=== PATIENT | female | born 1995 | race Caucasian/White ===

== ENCOUNTER 2018-08-12 10:10 | Inpatient (IN) | payer BC, MEDICAID, SELFPAY ==
[2018-08-12] MEDS: Lactated Ringers 1,000 ML 50 ML IV ×3 (11:00→19:34)
[2018-08-12 11:08] VITALS: BMI 41.7
[2018-08-12 11:16] LABS: Hematocrit 36.4 % (37-47); Hemoglobin 11.9 g/dl (12.0-15.0); Mean Corp Hgb Conc 32.7 g/gl (32-36); Mean Corpuscular Hgb 26.6 pg (27.0-32.0); Mean Corpuscular Volume 81.3 fL (81-99); Mean Platelet Vol. 9.8 fl (6.2-12.0); Platelet Count 344 K/mm3 (150-450); RBC Distribution Width CV 13.8 % (11.6-14.6); RBC Distribution Width SD 39.7 fl (35.1-43.9); Red Blood Count 4.48 M/mm3 (4.2-5.4); Scan Indicated on CBC? Y/N NO; White Blood Count 10.7 K/mm3 (4.4-11.0)
[2018-08-12] MEDS: Oxytocin 30 units/NS 500 ml 30 UNITS/500 ML IV.SOLN IV (12:18)
[2018-08-12] MEDS: Nalbuphine 10 MG/ML Ampul IV (13:55)
--- NOTE | 2018-08-12 15:44 | PCM.HP.OB ---
History Date of Admission: 08/12/18 Final RAANZA: 08/22/18 Gestational age: 38 Weeks and 4 Days History of this : This is a 23 year-old, G [], P [], at 38 weeks gestational age. 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
--- NOTE | 2018-08-12 15:47 | HP.PCM_ITS ---
History Date of Admission: 08/12/18 Final ARANZA: 08/22/18 Gestational age: 38 Weeks and 4 Days History of this : This is a 23 year-old, G [], P [], at 38 weeks gestational age. 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
[2018-08-12] MEDS: fentaNYL-bupivacaine (epidural) 100 ML BAG EPIDURAL (16:41)
--- NOTE | 2018-08-12 21:11 | PCM.OB.VAG ---
Vaginal Delivery Maternal Presentation: Spontaneous Rupture of Membranes Amniotic Membrane Rupture Type: Spontaneous at home Amniotic Fluid Description: Clear Final ARANZA: 08/22/18 Gestational age: 38 Weeks and 4 Days Date of Procedure: 08/12/18 Pre-Operative Diagnosis: SROM Post-Operative Diagnosis: [facility]OM Type of Anesthesia: Epidural Description of Procedure: Patient prepped & draped when c/c/+3. She pushed to deliver head. head gently guided to allow delivery of anterior & posterior shoulders. No excess traction placed on head. Body delivered & placed on maternal abdomen. 3vc clamped & cut in delayed fashion. Placenta delivered with gentle traction. Good uterine tone obtained. Presentation: FELICIA Placental Delivery Description: Expressed Placenta Disposition: [facility] Cord Vessel Description: 3 Vessels Estimated Blood Loss: 350ml Infant A gender: Male (1 minute): 8 (5 minute): 9 Episiotomy Description: None Laceration: Vaginal Extension/lac - repaired with 3-0 vicryl Medications given after delivery: IV Pitocin Complications: None
[2018-08-12] MEDS: Oxytocin 30 units/NS 500 ml 30 UNITS/500 ML IV.SOLN 334 UNITS IV (22:05)
[2018-08-12] MEDS: Oxytocin 30 units/NS 500 ml 30 UNITS/500 ML IV.SOLN 167 UNITS IV (22:35)
[2018-08-13] VITALS: BP 118/56; PULSE 86; RESP 17; TEMP 37.2
[2018-08-13 04:00] VITALS: PULSE 78; RESP 17
--- NOTE | 2018-08-13 07:55 | PCM.PN.OB ---
Subjective: No complaints - Physical Exam General: Alert, Oriented x3 Abdomen: Soft, Non Tender, Non-Distended - ff mid & below umb Extremities: No Calf Tenderness Vital Signs Temp Pulse Resp BP 98.9 F 78 17 118/56 L 08/13/18 00:00 08/13/18 04:00 08/13/18 04:00 08/13/18 00:00 Oxygen Delivery Method Room Air Weight: 258 lb 9.636 oz Body Mass Index (BMI) 41.7 Intake and Output for Last 24 Hours 08/11/18 08/12/18 08/13/18 23:59 23:59 23:59 Intake Total 3184 / 3184 Output Total 600 / 600 Balance 2584 / 2584 Laboratory Tests Past 24 Hrs 08/12/18 08/12/18 11:00 11:00 WBC 10.7 RBC 4.48 Hgb 11.9 L Hct 36.4 L MCV 81.3 MCH 26.6 L MCHC 32.7 RDW 13.8 RDW Differential 39.7 Plt Count 344 MPV 9.8 Blood Type O POSITIVE Antibody Screen NEGATIVE Medical Necessity - Tobacco Use Smoking Status: Never smoker Assessment/Plan PPD#1 Routine care
[2018-08-13 09:49] VITALS: BP 115/66; PULSE 87; RESP 16; TEMP 36.4
[2018-08-13 12:07] VITALS: BP 104/60; PULSE 89; RESP 16; TEMP 36.3
[2018-08-13] MEDS: Senna/Docusate Sodium 1 Tablet PO (14:48)
[2018-08-13] MEDS: Ibuprofen 600 MG Tablet PO (14:48)
[2018-08-13 16:04] VITALS: BP 134/87; PULSE 80; RESP 16; TEMP 36.3
[2018-08-13 20:35] VITALS: BP 133/71; PULSE 90; RESP 16; TEMP 36.6; O2SAT 96
[2018-08-14 02:50] VITALS: BP 111/58; PULSE 79; RESP 16; TEMP 36.4; O2SAT 95
[2018-08-14] MEDS: Acetaminophen 500 MG Tablet 1000 MG PO (08:55)
[2018-08-14] MEDS: Senna/Docusate Sodium 1 Tablet PO (08:56)
[2018-08-14 09:20] VITALS: BP 125/85; PULSE 82; RESP 18; TEMP 36.1
--- NOTE | 2018-08-14 11:54 | PCM.PN.OB ---
Subjective: Doing well per patient and nursing staff. Ambulating and taking PO without difficulty. Voiding and passing flatus. Pain controlled. Denies headache, visual changes, chest pain, SOB, increased vaginal bleeding or clots, or leg pain. Discharge to home unless baby has increased bilirubin then will remain hotel status. - Physical Exam General: Alert, Oriented x3, Cooperative, No apparent distress HEENT: Atraumatic, Normocephalic Lungs: Clear to auscultation, Normal air movement, No rhonchi, No wheeze Cardiovascular: Regular Rhythm, No murmurs Abdomen: - - Fundus firm 2 below U. Extremities: No edema, - - Rhona's negative Psych/Mental Status: Normal Affect, Appropriate Vital Signs Temp Pulse Resp BP Pulse Ox 97 F L 82 18 125/85 H 95 08/14/18 09:20 08/14/18 09:20 08/14/18 09:20 08/14/18 09:20 08/14/18 02:50 Oxygen Delivery Method Room Air Weight: 258 lb 9.636 oz Body Mass Index (BMI) 41.7 Intake and Output for Last 24 Hours 08/12/18 08/13/18 08/14/18 23:59 23:59 23:59 Intake Total 3184 / 3184 Output Total 600 / 600 200 / 200 Balance 2584 / 2584 -200 / -200 Medical Necessity - Tobacco Use Smoking Status: Never smoker Assessment/Plan A:PPD #2 P: 1) Routine PP care and instructions reviewed 2) Discharge home or to hotel status if baby has to stay for further management. 3) Follow up in 2 weeks and 6 weeks
--- NOTE | 2018-08-14 12:02 | PCM.DCVAG ---
Discharge Diet: No Restrictions Discharge Activity: Return to Normal Activity, May not drive while taking narcotic pain medications., May Shower May resume sexual activity in: 4-6 weeks Weight Bearing Status: Weight bearing as tolerated Call your doctor if your incision/area has: Continuous Slow Oozing, Sudden Increased Bleeding, Increased Pain/ Swelling, Increased Redness, Foul Smelling Discharge Call your doctor if you observe: Fever of 101 or Higher, Coldness, Increased Pain, Numbness or Tingling, Change in Color, Inability to urinate, Inability to have a bowel movement, Using more than one pad per hour, Shortness of breath, Fainting spells, Chest pain, Increased palpitations (irregular heartbeat), Calf discomfort, Uncontrolled pain Instructions: After a Vaginal , at Home, Common Questions About , Nutrition While Additional Instructions: If you experience any of the following, contact your healthcare provider. Bleeding that soaks a pad every hour for 2 hours Fever 100.4 or higher Unrelieved incision or abdominal pain Swelling, redness, discharge or bleeding from your incision or episiotomy site Your incision begins to separate Problems urinating (including inability to urinate or burning while urinating). Visual changes Severe headache Flu-like symptoms Pain or redness in one of both of your breasts Pain, warmth, tenderness or swelling in your legs, especially the calf area Frequent nausea and vomiting Symptoms of depression or anxiety If you experience any of the following, call 911 or go to the nearest Emergency Room. Chest pain Problems breathing Seizure activity Partial or complete paralysis of a body part, slurred speech, weakness or drooping of the face, or a sudden inability to walk or hold your balance Allergies/Adverse Reactions: Allergies No Known Allergies Allergy (Verified 08/12/18 11:04) Medications to take at Discharge Vits96/Iron Fum/Folic [ Tablet] 1 each PO DAILY 08/12/18 Acetaminophen [Tylenol] 1,000 mg PO Q8H PRN PRN tablet 08/14/18 Please Follow Up With: Gisela Sarabia When: Call to make an appointment with your doctor in 2 weeks and 6 weeks. If you had elevated Blood Pressure or 4th degree laceration you will need to be seen in 2 weeks. Primary Care Physician: Care Physician,No Primary [Primary Care Provider] - Test Results: Test results from this visit will be discussed in further detail at your follow-up appointment, if applicable.
--- NOTE | 2018-08-14 12:05 | DCINST_ITS ---
Discharge Diet: No Restrictions Discharge Activity: Return to Normal Activity, May not drive while taking narcotic pain medications., May Shower May resume sexual activity in: 4-6 weeks Weight Bearing Status: Weight bearing as tolerated Call your doctor if your incision/area has: Continuous Slow Oozing, Sudden Increased Bleeding, Increased Pain/ Swelling, Increased Redness, Foul Smelling Discharge Call your doctor if you observe: Fever of 101 or Higher, Coldness, Increased Pain, Numbness or Tingling, Change in Color, Inability to urinate, Inability to have a bowel movement, Using more than one pad per hour, Shortness of breath, F ainting spells, Chest pain, Increased palpitations (irregular heartbeat), Calf discomfort, Uncontrolled pain Instructions: After a Vaginal , at Home, Common Questions About , Nutrition While Additional Instructions: If you experience any of the following, contact your healthcare provider. * Bleeding that soaks a pad every hour for 2 hours * Fever 100.4 or higher * Unrelieved incision or abdominal pain * Swelling, redness, discharge or bleeding from your incision or episiotomy site * Your incision begins to separate * Problems urinating (including inability to urinate or burning while urinating). * Visual changes * Severe headache * Flu-like symptoms * Pain or redness in one of both of your breasts * Pain, warmth, tenderness or swelling in your legs, especially the calf area * Frequent nausea and vomiting * Symptoms of depression or anxiety If you experience any of the following, call 911 or go to the nearest Emergency Room. * Chest pain * Problems breathing * Seizure activity * Partial or complete paralysis of a body part, slurred speech, weakness or drooping of the face, or a sudden inability to walk or hold your balance Allergies/Adverse Reactions: Allergies No Known Allergies Allergy (Verified 08/12/18 11:04) Medications to take at Discharge Vits96/Iron Fum/Folic [ Tablet] 1 each PO DAILY 08/12/18 Acetaminophen [Tylenol] 1,000 mg PO Q8H PRN PRN tablet 08/14/18 Please Follow Up With: Gisela Sarabia When: Call to make an appointment with your doctor in 2 weeks and 6 weeks. If you had elevated Blood Pressure or 4th degree laceration you will need to be seen in 2 weeks. Primary Care Physician: Care Physician,No Primary [Primary Care Provider] - Test Results: Test results from this visit will be discussed in further detail at your follow- up appointment, if applicable.
[2018-08-14] MEDS: Ibuprofen 600 MG Tablet PO (13:37)
[2018-08-14 14:45] VITALS: BP 115/84; PULSE 94; RESP 20; TEMP 36.3; O2SAT 97
[2018-08-14 19:30] VITALS: BP 107/65; PULSE 84; RESP 17; TEMP 36.1
--- OUTSIDE RECORDS SUMMARY | 2018-10-07 13:10 | XMS RPT_ITS ---
:1995 Author Organization OHIP Care Team Providers Name Role Phone GEOVANNI CHAVEZ (CNM) Attending Unavailable GEOVANNI CHAVEZ (CNM) Referring Unavailable MARIE, KARMON Attending Unavailable GEOVANNI CHAVEZ (CNM) Referring Unavailable ZULAY PACHECO Attending Unavailable GEOVANNI CHAVEZ (CNM) Referring Unavailable MARIE, KARMON Referring Unavailable JESSICA GARNER (CNM) Attending Unavailable MARIE, KARMON Referring Unavailable MARIE, KARMON Referring Unavailable MARIE, KARMON Attending Unavailable MARIE, KARMON Referring Unavailable MAGALIS PACHECOZIZ A Attending Unavailable MARIE, KARMON Referring Unavailable GEOVANNI CHAVEZ (CNM) Attending Unavailable PASCUAL JESSICA (CNM) Attending Unavailable PASCUAL, JESSICA (CNM) Referring Unavailable PASCUAL JESSICA (CNM) Attending Unavailable JOSE RABAGO (LATCHER) Referring Unavailable PASCUAL, JESSICA (CNM) Attending Unavailable PASCUAL, JESSICA (CNM) Attending Unavailable PASCUAL, JESSICA (CNM) Attending Unavailable PASCUAL, JESSICA (CNM) Attending Unavailable PASCUAL, JESSICA (CNM) Attending Unavailable RADHA BARAJAS (LATCHER) Attending Unavailable GIOVANNI SALTER MD Attending Unavailable PHYSICIAN, NONE Primary Care Unavailable Marie, Karmon Admitting Unavailable Marie, Karmon Attending Unavailable Augie Salazar Referring Unavailable Primay Care Physicia, No Primary Care Unavailable PROBLEMS PROBLEMS DATE TYPE CONDITION / CODE ATTENDING STATUS SOURCE 06/24/2018 Active Unknown / JESSICA GARNER Active [facility] UNK(Unknown) (CNM) [place] Repository 05/27/2018 Active Abnormal glucose NA Active [facility] complicating [facility] [place] / Repository O99.810(ICD-10) 05/26/2018 Active 27 weeks gestation NA Active [facility] of / [place] Z3A.27(ICD-10) Repository 02/09/2018 Active Encounter for NA Active [facility] [place] screening, Repository unspecified / Z36.9(ICD-10) 01/12/2018 Active Obesity NA Active [facility] complicating [facility] , Repository unspecified trimester / O99.210(ICD-10) PROCEDURES PROCEDURES No Procedure Records FoundRESULTS RESULTS PROGRESS Observed: 08/18/2018 Status: COMPLETED Source: GRAY 10:44 AM [facility] REPOSIT[facility] HNO ID: [id number] Author: Radha Dan) [place] Service: (none) Author Type: Nurse Practitioner Type: Progress Notes Filed: 08/18/2018 11:14 AM Note Text: SUBJECTIVE: 23 year old female presents for 1 week exam. Outcome: . Date delivered: 08/12/18. Delivering M.D.: Augie Salazar MD. Delivered in what hospital? [facility] Lochia: Rubra, Normal depression/mood: moderate Breast/bottle: Breast feeding. If , do you have any drainage or redness at incision site? N/A Do you have a fever? No Additional Issues: none Sera Winters SUBSTANCE ABUSE SERVICES DIRECTOR *pt states that she is crying all the time and anxious and she doesn't understand why this is happening. Infant is jaundice and having to repeat blood work every other day and she is worried about that. She states that she has had some depression in the past but was never treated. OBJECTIVE: Abdomen: soft, non-tender, no masses, no hepatosplenomegaly, no lymphadenopathy and deferred Incision: None PLAN: RTO for 6 week check, -Zoloft 25mg x6 days and then 50mg daily ordered -pt verbalized understanding of the directions for the medication and importance of calling the office if she is still struggling on the medication. 6 week check in 09/23- medication follow up at that visit will need done. I have reviewed and updated past medical and surgical history, medications and allergies. Radha Barajas APRN.LATCHER PROGRESS Observed: 08/17/2018 Status: COMPLETED Source: GRAY 2:26 PM [facility] REPOSITORY HNO ID: [id number] Author: Sera Winters LPN Service: (none) Author Type: (none) Type: Progress Notes Filed: 08/17/2018 2:40 PM Note Text: Pt delivered via at [facility] on 08/12/[address] Salazar. See OB Outcome note. Called pt to followup after delivery and pt very weepy and stated that she has started with post depression. appt given for 08/18/18 to see provider to discuss this and possible tx. Sera Winters LPN HOSP Observed: 08/17/2018 Status: COMPLETED Source: GRAY 12:00 AM [facility] REPOSITORY Patient Update (WOOB) KEEGAN CAO ([id number]) 1995 F Date Time Provider Department 08/17/18 AUGIE SALAZAR During your visit today, we recorded the following information about you: Sera Winters LPN 08/17/2018 2:40 PM Signed Pt delivered via at [facility] on 08/12/[address] Salazar. See OB Outcome note. Called pt to followup after delivery and pt very weepy and stated that she has started with post depression. appt given for 08/18/18 to see provider to discuss this and possible tx. Sera Winters LPN Allergies As of Date: 08/17/2018 (No Known Allergies) Date Reviewed: 08/04/2018 Reviewed by: Claudia Buchanan Ma - Fully Assessed Prescriptions as of 08/17/2018 Sig: VITAMIN,CALCIUM,MINE* Take 1 tablet by mouth. Problem List As Of Date 08/17/2018 Noted Resolved Obesity in [O99.210] INVALID FOR* More... Patient request for diagnostic testing [Z01.89] INVALID FOR* More... Abnormal glucose affecting [O99.810] INVALID FOR* More... Positive GBS test [B95.1] INVALID FOR* Encounter Status:Closed by SERA WINTERS LPN on 08/17/18 DISCHARGE INSTRUCTION Observed: 08/14/2018 Status: F Source: GRUNDY 12:05 PM [facility] REPOSITORY [facility] Medical Records Department [address] [place] [address] Instructions for Home/Discharge Instructions 08/14/18 1202 MR#: [id number] Acct: [id number] Name: KEEGAN CAO Rep #: [id number] : 1995 23 From: Geovanni Chavez CNM PCP: Care Physician, No Primary Status: ADM IN Discharge Diet: No Restrictions Discharge Activity: Return to Normal Activity, May not drive while taking narcotic pain medications., May Shower May resume sexual activity in: 4-6 weeks Weight Bearing Status: Weight bearing as tolerated Call your doctor if your incision/area has: Continuous Slow Oozing, Sudden Increased Bleeding, Increased Pain/ Swelling, Increased Redness, Foul Smelling Discharge Call your doctor if you observe: Fever of 101 or Higher, Coldness, Increased Pain, Numbness or Tingling, Change in Color, Inability to urinate, Inability to have a bowel movement, Using more than one pad per hour, Shortness of breath, Fainting spells, Chest pain, Increased palpitations (irregular heartbeat), Calf discomfort, Uncontrolled pain Instructions: After a Vaginal , at Home, Common Questions About , Nutrition While Additional Instructions: If you experience any of the following, contact your healthcare provider. * Bleeding that soaks a pad every hour for 2 hours * Fever 100.4 or higher * Unrelieved incision or abdominal pain * Swelling, redness, discharge or bleeding from your incision or episiotomy site * Your incision begins to separate * Problems urinating (including inability to urinate or burning while urinating). * Visual changes * Severe headache * Flu-like symptoms * Pain or redness in one of both of your breasts * Pain, warmth, tenderness or swelling in your legs, especially the calf area * Frequent nausea and vomiting * Symptoms of depression or anxiety If you experience any of the following, call 911 or go to the nearest Emergency Room. * Chest pain * Problems breathing * Seizure activity * Partial or complete paralysis of a body part, slurred speech, weakness or drooping of the face, or a sudden inability to walk or hold your balance Allergies/Adverse Reactions: Allergies No Known Allergies Allergy (Verified 08/12/18 11:04) Medications to take at Discharge Vits96/Iron Fum/Folic [ Tablet] 1 each PO DAILY 08/12/18 Acetaminophen [Tylenol] 1,000 mg PO Q8H PRN PRN tablet 08/14/18 Please Follow Up With: Augie Salazar When: Call to make an appointment with your doctor in 2 weeks and 6 weeks. If you had elevated Blood Pressure or 4th degree laceration you will need to be seen in 2 weeks. Primary Care Physician: Care Physician,No Primary [Primary Care Provider] - Test Results: Test results from this visit will be discussed in further detail at your follow-up appointment, if applicable. 08/14/18 1205 <Electronically signed by Geovanni Chavez CNM> Date Geovanni Chavez CNM CC: No Primary Care Physician OPERATIVE REPORT Observed: 08/12/2018 Status: F Source: GRUNDY 10:26 PM [facility] REPOSITORY [facility] Medical Records Department [address] [place] [address] Operative Report 08/12/18 2111 MR#: [id number] Acct: [id number] Name: KEEGAN CAO Princess Rep #: [id number] : 1995 23 From: Augie Salazar PCP: Care Physician, No Primary Status: ADM IN Location: [id number] Vaginal Delivery Maternal Presentation: Spontaneous Rupture of Membranes Amniotic Membrane Rupture Type: Spontaneous at home Amniotic Fluid Description: Clear Final ARANZA: 08/22/18 Gestational age: 38 Weeks and 4 Days Date of Procedure: 11/29/18 Pre-Operative Diagnosis: SROM Post-Operative Diagnosis: SROM Type of Anesthesia: Epidural Description of Procedure: Patient prepped AND draped when c/c/+3. She pushed to deliver head. head gently guided to allow delivery of anterior AND posterior shoulders. No excess traction placed on head. Body delivered AND placed on maternal abdomen. 3vc clamped AND cut in delayed fashion. Placenta delivered with gentle traction. Good uterine tone obtained. Presentation: FELICIA Placental Delivery Description: Expressed Placenta Disposition: [facility] Cord Vessel Description: 3 Vessels Estimated Blood Loss: 350ml Infant A gender: Male (1 minute): 8 (5 minute): 9 Episiotomy Description: None Laceration: Vaginal Extension/lac - repaired with 3-0 vicryl Medications given after delivery: IV Pitocin Complications: None 08/12/182225 <Electronically signed by Augie Salazar > Date Augie Salazar CC: No Primary Care Physician; Augie Salazar Signed HISTORY AND PHYSICAL Observed: 08/12/2018 Status: F Source: GRUNDY EXAM 3:47 PM [facility] REPOSITORY [facility] Medical Records Department [address] [place] [address] History and Physical 08/12/18 1544 MR#: [id number] Acct: [id number] Name: KEEGAN CAO Rep #: [id number] : 1995 23 From: Augie Salazar PCP: Care Physician, No Primary Status: ADM IN Location: [id number] History Date of Admission: 08/12/18 Final ARANZA: 08/22/18 Gestational age: 38 Weeks and 4 Days History of this : This is a 23 year-old, G [], P [], at 38 weeks gestational age. Allergies No Known Allergies Allergy (Verified 08/12/18 11:04) Home Medications: Home Medications Vits96/Iron Fum/Folic [ Tablet] 1 each PO DAILY 08/12/18 Smoking Status: Never smoker Heart Tracin with mod variability, accels, mild variables TOCO Analysis: Q 2min History Past Pregnancies: Past Pregnancies Delivery Name GA/Weeks Outcome Route WeiInfant GeLabor LenAnesthesiDelivery Provider FOB Date ght [facility] Location Labs: see [facility] H AND P Physical Exam General: Alert, Oriented x3 Abdomen: Soft, Non Tender, Non-Distended, Gravid TRAINING AND DOCUMENTATION SPECIALIST: Normal external genitalia Estimated gestational size: Appropriate for gestational size Presentation: Cephalic Cervix Dilation (cm): 5 Station: -2 Effacement (%): 80 Assessment/Plan This is a 23 year-old yo female in labor Admit to L AND D SROM - pitocin for augmentation GBS positive - pcn per protocol EFW less than 4500g - patient with adequate pelvis Pain - epidural 08/12/18 1547 <Electronically signed by Augie Salazar > Date Augie Salazar Cosigner Signature: Date (if applicable) CC: No Primary Care Physician; Augie Salazar Signed CBC-COMPLETE BLOOD CNT Collected: 08/12/2018 Status: F Source: STEFFANIE NO DIFF 11:00 AM [facility] REPOSITORY TYPE CODE TESTS RESULT OUT OF RANGE REFERENCE UNITS LAB L100.1000 4.4-11.0 K/mm3 Normal WBC 10.7 LAB L100.1200 4.2-5.4 M/mm3 Normal RBC 4.48 LAB L100.1300 12.0-15.0 g/dl Low HGB 11.9 LAB L100.1400 37-47 % Low HCT 36.4 LAB L100.1500 81-99 fL Normal MCV 81.3 LAB L100.1600 27.0-32.0 pg Low MCH 26.6 LAB L100.1700 32-36 g/gl Normal MCHC 32.7 LAB L100.1810 11.6-14.6 % Normal RDW CV 13.8 LAB L100.1820 35.1-43.9 fl Normal RDW SD 39.7 LAB L100.1900 150-450 K/mm3 Normal PLT 344 LAB L100.2000 6.2-12.0 fl Normal MPV 9.8 Performed By: #### L100.0500 #### [facility] [address] [place], [address] TYPE AND SCREEN Collected: 08/12/2018 Status: F Source: GRUNDY 11:00 AM [facility] REPOSITORY Order Comment: Reason for Type AND Screen/Red Cells: ROUTINE TYPE CODE TESTS RESULT OUT OF RANGE REFERENCE UNITS LAB B10.0800 O Normal BLOOD TYPE GEL POSITIVE LAB B100.4000 Normal Antibody NEGATIVE Screen Performed By: #### B101.7450 #### [facility] [address] [place], [address] PROGRESS Observed: 08/04/2018 Status: COMPLETED Source: GRAY 11:00 AM [facility] REPOSITORY HNO ID: [id number] Author: Jessica Garner Service: (none) Author Type: Intensivist Type: Progress Notes Filed: 08/04/2018 11:01 AM Note Text: CM - S: Keegan Cao presents for a routine OB visit at 37w3d. She denies LOF, VB, DFM or regular cramping/contractions. Feels like baby is pushing down. Patient reports increase in irregular BHx ctx and desires SVE today. O: See flow sheet Gen: A+O x 3, NAD Abdomen: NT x 4 quadrants, S=D Extremities: No edema in LE SVE = 2/60/-2, scant bleeding with exam. No membrane sweep done today. A/P: 37w3d IUP. Normal . RTO 1 Weeks for follow up. Call with LOF, VB, DFM or cramping/contractions. 1. 37 weeks gestation of -[facility] teaching done, Labor precautions reviewed - URINE OB DIP B/O 2. Encounter for supervision of normal first in third trimester - URINE OB DIP B/O Jessica Garner APRN.CNM PROGRESS Observed: 07/30/2018 Status: COMPLETED Source: GRAY 5:41 PM [facility] REPOSITORY HNO ID: [id number] Author: Jessica Garner Service: (none) Author Type: Intensivist Type: Progress Notes Filed: 07/30/2018 5:42 PM Note Text: CM - S: Keegan Cao presents for a routine OB visit at 36w5d. She denies LOF, VB, DFM or cramping/contractions. O: See flow sheet Gen: A+O x 3, NAD Abdomen: NT x 4 quadrants, S=D Extremities: No extremities A/P: 36w5d IUP. Normal , GBS Screening. RTO 1 Weeks for follow up. Call with LOF, VB, DFM or cramping/contractions. 1. 36 weeks gestation of -GBS screening today -[facility] teaching and PTL precautions reviewed - URINE OB DIP B/O - STREPTOCOCCUS B PCR 2. Encounter for supervision of normal first in 3rd trimester Jessica Garner, BIOSTATISTICS PROFESSOR.CNM GROUP B STREP PCR Collected: 07/30/2018 Status: F Source: GRAY 9:30 AM [facility] REPOSITORY TYPE CODE TESTS RESULT OUT OF RANGE REFERENCE UNITS LAB GBPCRT Positive for Abnormal Group B Alert GROUP B Streptococcus by STREP PCR PCR. If susceptibility testing is needed and was not requested with initial test order, call lab ([phone]) within 5 days to initiate workup. Performed By: #### GBPCR #### [facility] [address] [place], [place] [address] PROGRESS Observed: 07/27/2018 Status: COMPLETED Source: GRAY 9:09 AM [facility] REPOSITORY HNO ID: [id number] Author: Kallie Pugh RN Service: (none) Author Type: (none) Type: Progress Notes Filed: 07/27/2018 9:09 AM Note Text: CLASS Date Attended: July 26, 2018 Introduction Credentials Expectations of a 3-hour class 1. Review of handouts 2. Hospital tour 3. Baby care class Stages of labor video Stages to call the doctor 1. SROM 2. Cervical changes 3. Bleeding vs. bloody show 4. Decreased movement Hospital Procedures 1. Internal/external monitors 2. IV therapy 3. AROM 4. Pitocin Pain Management 1. Epidural 2. Other pain medications 3. No medicinal comfort measures 4. Breathing/pushing Delivery methods 1. 2. Forceps 3. Vacuum extractor Physician presentations 1. OB-manager cardiac 2. Senior Billing Consultant 1. Mom's first hour 2. baby's first hour 3. baby's discharge protocol Completed childbirth education class. Kallie Pugh RN CNCNPATED Observed: 07/26/2018 Status: COMPLETED Source: GRAY 12:00 AM [facility] REPOSITORY Education (WOOB) KEEGAN CAO ([id number]) 1995 F Date Time Provider Department 07/26/18 NURSE PNOB [facility] WOOB Reason for Visit: Class [4072] Progress Notes: Kallie Pugh RN 07/27/2018 9:09 AM Signed CLASS Date Attended: July 26, 2018 Introduction Credentials Expectations of a 3-hour class 1. Review of handouts 2. Hospital tour 3. Baby care class Stages of labor video Stages to call the doctor 1. SROM 2. Cervical changes 3. Bleeding vs. bloody show 4. Decreased movement Hospital Procedures 1. Internal/external monitors 2. IV therapy 3. AROM 4. Pitocin Pain Management 1. Epidural 2. Other pain medications 3. No medicinal comfort measures 4. Breathing/pushing Delivery methods 1. 2. Forceps 3. Vacuum extractor Physician presentations 1. OB-manager cardiac 2. Senior Billing Consultant 1. Mom's first hour 2. baby's first hour 3. baby's discharge protocol Completed childbirth education class. Kallie Pugh RN During your visit today, we recorded the following information about you: Allergies As of Date: 07/26/2018 (No Known Allergies) Date Reviewed: 07/22/2018 Reviewed by: Jessica Garner - Fully Assessed Prescriptions as of 07/26/2018 Sig: VITAMIN,CALCIUM,MINE* Take 1 tablet by mouth. Encounter Status:Closed by KALLIE PUGH RN on 07/27/18 PROGRESS Observed: 07/22/2018 Status: COMPLETED Source: GRAY 11:43 AM [facility] REPOSITORY HNO ID: [id number] Author: Jessica Garner Service: (none) Author Type: Intensivist Type: Progress Notes Filed: 07/22/2018 11:44 AM Note Text: CM - S: Keegan Cao presents for a routine OB visit at 35w4d. She denies LOF, VB, DFM or cramping/contractions. O: See flow sheet Gen: A+O x 3, NAD Abdomen: NT x 4 quadrants, S=D, EFW = 6.5-7# today by Estuardo'jessi Extremities: No edema in LE A/P: 35w4d IUP. Normal . RTO Weeks for follow up. Call with LOF, VB, DFM or cramping/contractions. 1. Encounter for supervision of normal first in third trimester -Labor precautions reviewed - URINE OB DIP B/O 2. 35 weeks gestation of -[facility] teaching discussed -GBS vaginal screening at n.v. - URINE OB DIP B/O Jessica Garner APRN.CNM PROGRESS Observed: 07/08/2018 Status: COMPLETED Source: GRAY 10:33 AM [facility] REPOSITORY HNO ID: [id number] Author: Jessica Garner Service: (none) Author Type: Intensivist Type: Progress Notes Filed: 07/08/2018 11:26 AM Note Text: KZ/CM-S: Patient presents for OB visit at 33w4d. Denies VB, LOF, regular contractions. Denies nausea or heartburn. Experiencing dull ache on right side. Comes and goes. Discussed changes to uterus and growth could be contributing to the ache. O: See flow sheet General: Alert and orient x3. Pleasant in no apparent distress. Abdomen: NT x 4 quadrants, S=D Extremities: No edema in bilateral lower extremities. A/P: 23 y/o @ 33.4wks. Normal . RTO 2 weeks for follow- up visit. Call with LOF, VB, DFM or cramping/contractions. 1. 33 weeks gestation -[facility] teaching and PTL precautions reviewed 2. Need for vaccination -Tdap and flu vaccine given today Jessica VARGHESEN/Jessica Garner APRN-CNM PROGRESS Observed: 07/08/2018 Status: COMPLETED Source: GRAY 9:46 AM [facility] REPOSITORY O ID: [id number] Author: Meredith Pepper Ma Service: (none) Author Type: (none) Type: Progress Notes Filed: 07/08/2018 11:26 AM Note Text: Patient identified by name and date of . Keegan Cao presents today for a vaccination of Tdap. Patient denies an allergy to latex: yes Patient denies a severe (life-threatening) allergy to a previous dose of Tdap, DTP, DTaP, DT or Td vaccine. Yes Patient denies history of epilepsy or neurological problems: Yes Patient is afebrile and denies being moderately or severely ill: Yes Patient denies history of Guillain-Grottoes Syndrome (a severe paralytic illness): Yes Tdap Adacel injection was given without incident. See immunizations for details of immunizations administered today. VIS sheet provided: Yes Provider Pascual was present in office at time of injection. Meredith Pepper Ma 23 year old female here for INACTIVATED INFLUENZA VACCINE. 0465-2926 Season Patient is identified by name and date of : Yes [] CONTRAINDICATIONS color enhanced section Age less than 6 months? No Allergy to eggs, chicken, chicken feathers, or chicken dander? No Allergy to thimerosal (a preservative) or formaldehyde, gelatin? No History of severe reaction to any vaccine component or a previous dose of influenza vaccination? No History of Guillain-Grottoes Syndrome within 6 weeks after a previous influenza vaccine? No Patient is not moderately or severely ill? No Current temperature greater or equal to 100.4F? No History of Bone Marrow Transplant prior 6 months or solid organ transplant in the past 3 months ? No History of fainting after a prior injection or medical procedure? No- ? If patient has fainted in the past, the CDC recommends sitting or lying down for 15 minutes after the vaccination. [] VERIFICATION color enhanced section Was the answer Yes for any of the above contraindications? No contraindications present. Acceptable to proceed with vaccine. Patient/guardian agrees the above answers are true to the best of their knowledge? Yes Flu vaccine information sheet given? Yes See immunization activity in [facility] for details of immunizations adminstered today. Patient age: [age] year old For The 5173-1211 Flu Season 6-35 months old: Fluzone 0.25 ml - IM (Preservative Free) 3 years of age: Fluzone 0.5 ml - IM (Preservative Free) 3 years and older: Fluzone 0.5 ml- IM-(with Preservatives) 65+ years old: 2-49 years old Fluzone High-Dose 0.5 ml - IM (Preservative Free) FLUMIST- intranasal REMEMBER: If patient is less than 9 years of age and this is the first vaccine of Influenza to be received in any flu season, they should receive a second dose in one months time. 100G, 3HR GEST. Collected: 06/09/2018 Status: F [facility] 10:59 AM [facility] REPOSITORY TYPE CODE TESTS RESULT OUT OF REFERENCE UNITS RANGE LAB GTG0 74-94 mg/dL Glucose 86 GST,Fasting Result Comment: [place] [employer] ([place] guidelines state gestational diabetes mellitus is present when 2 or more of the plasma glucose concentrations meet or exceed the following levels: fastin mg/dl, 1 hr: 180 mg/dl, 2 hr: 155 mg/dl, and 3 hr: 140 mg/dl. LAB GTG1 74-179 mg/dL High Glucose GST, 1 215 Hr Result Comment: [place] [employer] ([place]) guidelines state gestational diabetes mellitus is present when 2 or more of the plasma glucose concentrations meet or exceed the following levels: fastin mg/dl, 1 hr: 180 mg/dl, 2 hr: 155 mg/dl, and 3 hr: 140 mg/dl. LAB GTG2 74-154 mg/dL Glucose GST, 2 124 Hr Result Comment: [place] [employer] ([place]) guidelines state gestational diabetes mellitus is present when 2 or more of the plasma glucose concentrations meet or exceed the following levels: fastin mg/dl, 1 hr: 180 mg/dl, 2 hr: 155 mg/dl, and 3 hr: 140 mg/dl. LAB GTG3 74-139 mg/dL Low Glucose GST, 3 Hr 51 Result Comment: [place] [employer] ([place]) guidelines state gestational diabetes mellitus is present when 2 or more of the plasma glucose concentrations meet or exceed the following levels: fastin mg/dl, 1 hr: 180 mg/dl, 2 hr: 155 mg/dl, and 3 hr: 140 mg/dl. Performed By: #### GTGST3 #### [facility] [address] [place], [place] [address] PROGRESS Observed: 06/09/2018 Status: COMPLETED Source: GRAY 10:46 AM [facility] REPOSITORY HNO ID: [id number] Author: Jessica Garner Service: (none) Author Type: Intensivist Type: Progress Notes Filed: 06/09/2018 10:47 AM Note Text: CM - S: Keegan Cao presents for a routine OB visit at 29w3d. She denies LOF, VB, DFM or cramping/contractions. Has plans to complete 3 hour GTT today for history of elevated 1 hour GCT. Declines flu vaccine. O: See flow sheet Gen: A+O x 3, NAD Abdominal: Gravid, S=D though a difficult exam secondary to body habitus Extremities: No edema in LE A/P: 29w3d IUP. Obesity affecting , Abnormal Glucose Tolerance. RTO 2 Weeks for follow up. Call with LOF, VB, DFM or cramping/contractions. 1. 29 weeks gestation of -LARC declincation signed -Patient choosing to decline flu vaccine - URINE OB DIP B/O 2. Encounter for supervision of normal first in third trimester -[facility] teaching and PTL precautions reviewed - URINE OB DIP B/O 3. Abnormal glucose affecting -3 hour GTT done today - will contact patient with results. Jessica Garner APRN.ZEYAD CBC AND DIFFERENTIAL Collected: 05/26/2018 Status: F Source: GRAY 10:16 AM [facility] REPOSITORY TYPE CODE TESTS RESULT OUT OF REFERENCE UNITS RANGE LAB WBC 3.70-11.00 k/uL WBC 8.81 LAB RBC 3.90-5.20 m/uL RBC 4.30 LAB HGB 11.5-15.5 g/dL Hemoglobin 11.8 LAB HCT 36.0-46.0 % Hematocrit 37.9 LAB MCV 80.0-100.0 fL MCV 88.1 LAB MCH 26.0-34.0 pG MCH 27.4 LAB MCHC 30.5-36.0 g/dL MCHC 31.1 LAB RDWCV 11.5-15.0 % RDW-CV 13.0 LAB PLTCT 150-400 k/uL Platelet Count 315 LAB MPV 9.0-12.7 fL MPV 10.4 LAB ANEUT % Neut% 78.9 LAB AANEUT 1.45-7.50 k/uL Abs Neut 6.96 LAB ALYMP % Lymph% 17.5 LAB AALYMP 1.00-4.00 k/uL Abs Lymph 1.54 LAB AMONO % Ness% 3.0 LAB AAMONO <0.87 k/uL Abs Ness 0.26 LAB AEOS % Eosin% 0.5 LAB AAEOS <0.46 k/uL Abs Eosin 0.04 LAB ABASO % Baso% 0.1 LAB AABASO <0.11 k/uL Abs Baso <0.03 LAB AUNRBC 0 /100 WBC NRBCs 0.0 LAB ABNRBC <0.01 k/uL Absolute nRBC <0.01 LAB DTYP DTYPE Auto Diff Performed By: #### CBCDIF #### [facility] [address] [place], [place] [address] 50G, 1HR GEST. Collected: 05/26/2018 Status: F Source: GRAY GSCRN 10:16 AM [facility] REPOSITORY TYPE CODE TESTS RESULT OUT OF REFERENCE UNITS RANGE LAB GLUP 74-134 mg/dL High Glucose 165 Screen, Preg Result Comment: [place] [employer] Gy[employer] (Viera/Coustan) guidelines state a gestational diabetes mellitus positive screen is made, in women not previously diagnosed with overt diabetes, when the 1 hr plasma glucose level is equal to or above 140 mg/dL. The [facility] recommends a 135 mg/dL cutoff. Performed By: #### GLTGST #### [facility] [address] [place], [place] [address] PROGRESS Observed: 05/26/2018 Status: COMPLETED Source: GRAY 9:37 AM [facility] [place] REPOSITORY HNO ID: [id number] Author: Jessica Davies) Pascual Service: (none) Author Type: Intensivist Type: Progress Notes Filed: 05/26/2018 9:37 AM Note Text: CM - S: Keegan Cao presents for a routine OB visit at 27w3d. She denies LOF, VB, DFM or cramping/contractions. Left-sided groin pain noted - c/w round ligament pain. Exercises for relief discussed. O: See flow sheet Gen: A+O x 3, NAD Abd: NT x 4 quadrants, S=D Extremities: No edema A/P: 27w3d IUP. Obesity (BMI>40). RTO 2 Weeks for follow up. Call with LOF, VB, DFM or cramping/contractions. 1. Encounter for supervision of normal first in second trimester -Negative screening for PP depression -[facility] teaching and PTL precautions reviewed. - URINE OB DIP B/O 2. 27 weeks gestation of -1 hour GCT today Immediate PP LARC discussed - patient deferred signing form until next visit so as to talk with her partner re: this option. - URINE OB DIP B/O - CBC + DIFF; Future - GEST GLUC SCREEN, 1-HR, 50 GM, NON-FASTING; Future Jessica Garner, BIOSTATISTICS PROFESSOR.ZEYAD SBIRT Keegan Cao was given the 4P's screening tool. Keegan answered as follows: OB Opioid Screening - Last Recorded (since 08/29/2017) Did any of your parents have a problem with alcohol or other drug use? No Does your partner have a problem with alcohol or other drug use? No In the past, have you had difficulties in your life because of alcohol or other drugs, including prescription medications? No In the past month have you drunk any alcohol or used other drugs? (!) Yes (had 2 mixed drinks 12/13/2017 before she was aware she was ) Are you taking medication for pain during the either prescribed or not? No Based on the screen and further questions, she is considered at Low risk due to:No past or current use. Positive reinforcement of current behavior. Jessica Garner APRN.CNM PROGRESS Observed: 04/09/2018 Status: COMPLETED Source: GRAY 12:32 PM [facility] REPOSITORY HNO ID: [id number] Author: Zulay Pacheco Service: (none) Author Type: Physician Type: Progress Notes Filed: 04/09/2018 12:32 PM Note Text: A ryder? fetus in utero with symmetric measurements Adequate growth (AGA). Estimated Date of Delivery: 08/22/18 EGA = 20w2d The anatomy appears normal. There are no evident malformations and /or effusions. No genetic markers are noted. The amniotic fluid volume is within normal limits. The sensitivity of ultrasound in the detection of malformations overall is approximately 35%. RECOMMENDATIONS: - Follow up ultrasound as clinically indicated SEQUENT SCRN SECOND Collected: 03/10/2018 Status: F [facility] REPOSITORY TYPE CODE TESTS RESULT OUT OF REFERENCE UNITS RANGE LAB SE1PAP MoM 1.09 SE1 JACOB A LAB SE2AFP MoM 1.36 SE2 AFP LAB SE2HCG MoM 3.97 SE2 hCG LAB SE2UE3 MoM 1.41 SE2 Unconj uE3 LAB SE2INH MoM 1.63 SE2 Dimrc Inhibin A LAB SE1HCG MoM 2.33 SE1 hCG LAB SE2INT Screen Negative SE2 Interp Screen Negative LAB SE2SDN SE2 Scrn Rsk <1:80901 Dn Synd LAB SE2ADN SE2 Age Rsk 1:1100 Dn Snyd LAB SE2STS SE2 Scr Rsk <1:00042 Trsmy 13 LAB SE2STR SE2 Scr Rsk <1:08934 Trsmy18 LAB SE2SON SE2 Scr Rsk 1:3700 ONTD LAB SE2RS View Seq Scrn results in Second Trim Scanned Documents link when available. LAB SEQLRV SEQ Staff Reviewed by Review Kevin Shelton MD, PhD ([id number]) Performed By: #### SEQL2 #### [facility] [address] [place], [place] [address] PROGRESS Observed: 02/09/2018 Status: COMPLETED Source: GRAY 4:54 PM [facility] REPOSITORY HNO ID: [id number] Author: Zulay Pacheco Service: (none) Author Type: Physician Type: Progress Notes Filed: 02/09/2018 4:54 PM Note Text: A single intrauterine gestational sac is noted with a regular outline. There is no decidual hemorrhage. The yolk sac is visualized and shows normal shape and echogenicity. A living single fetus is noted. The heart rate is within normal range. The CRL corresponds to the gestational age. Estimated Date of Delivery: 08/22/18 EGA = 12w2d Negative NT screen for Trisomy 21. The sensitivity of nuchal translucency measurement for Trisomy 21 is ~60%. The anatomy appears normal in the areas visualized. RECOMMENDATIONS: - The patient requested the sequential screening. The test has been ordered - Ultrasound examination at 18 to 20 weeks SEQUENT SCRN FIRST Collected: 02/09/2018 Status: F Source: GRAY [facility] PATIENTS ONLY 3:29 PM [facility] REPOSITORY TYPE CODE TESTS RESULT OUT OF REFERENCE UNITS RANGE LAB SE1PAP MoM 1.11 SE1 JACOB A LAB SE1HCG MoM 2.37 SE1 hCG LAB SE1INT Final result pending second Final trimester SE1 result pending sample Interp second trimester sample LAB SE1SDN SE1 Scrn 1:1700 Rsk Dn Synd LAB SE1ADN 1:810 SE1 Age Rsk Dn Synd LAB SE1STR SE1 Scr <1:12932 Rsk Trsmy18 LAB SE1ATR SE1 Age 1:2500 Rsk Trsmy18 LAB SE1RS View Seq Scrn results in First Trim Scanned Documents link when available. LAB SEQLRV SEQ Staff Reviewed by Review Kalin Sow, Ph.D. Performed By: #### SEQL1 #### [facility] [address] [place], [place] [address] CBC Collected: 01/12/2018 Status: F Source: GRAY 10:17 AM [facility] REPOSITORY TYPE CODE TESTS RESULT OUT OF REFERENCE UNITS RANGE LAB WBC 3.70-11.00 k/uL WBC 10.89 LAB RBC 3.90-5.20 m/uL RBC 4.71 LAB HGB 11.5-15.5 g/dL Hemoglobin 13.0 LAB HCT 36.0-46.0 % Hematocrit 41.0 LAB MCV 80.0-100.0 fL MCV 87.0 LAB MCH 26.0-34.0 pG MCH 27.6 LAB MCHC 30.5-36.0 g/dL MCHC 31.7 LAB RDWCV 11.5-15.0 % RDW-CV 13.2 LAB PLTCT 150-400 k/uL Platelet Count 371 LAB MPV 9.0-12.7 fL MPV 9.8 LAB ABSNUC <0.01 k/uL Absolute nRBC <0.01 Performed By: #### CBC, RUBIGG, HBSAG, HIV12C, SYPHGX #### [facility] [place] [address] RUBELLA IGG ANTIBODY Collected: 01/12/2018 Status: F Source: GRAY 10:17 [facility] REPOSITORY TYPE CODE TESTS RESULT OUT OF REFERENCE UNITS RANGE LAB RUBGQL Negative Rubella IgG Negative Ab, Qual Result Comment: Sample is considered negative for IgG antibodies to rubella virus. A negative result presumes that immunity has not been acquired. If exposure to rubella virus is suspected despite a neg ative finding, a second specimen should be collected and tested one to two weeksn later. Seroconversion from a negative specimen to a positive specimen is evidence of either recent infection, response to vaccination, or administration of immunoglobulins. LAB RUBQNT Index Value Rubella IgG Ab 0.56 Result Comment: Index values are interpreted as follows: Negative specimens <0.90 Equivocol specimens 0.90 to 0.99 Positive specimens >0.99 The magnitude of the measured result is not indicative of the amount of antibody present. Performed By: #### CBC, RUBIGG, HBSAG, HIV12C, SYPHGX #### [facility] [address], [place] [address] HEPATITIS B SURF. AG Collected: 01/12/2018 Status: F Source: GRAY 10:17 [facility] REPOSITORY TYPE CODE TESTS RESULT OUT OF REFERENCE UNITS RANGE LAB HBSAG Negative Hepatitis B Negative Surf. Ag Performed By: #### CBC, RUBIGG, HBSAG, HIV12C, SYPHGX #### [address] [address] HIV 12 COMBO (AG/AB) Collected: 01/12/2018 Status: F Source: GRAY 10:17 AM [facility] REPOSITORY TYPE CODE TESTS RESULT OUT OF REFERENCE UNITS RANGE LAB HVAGAB Non Reactive HIV Non Reactive 12 Ag/Ab Result Comment: (NOTE) HIV Information: [place] Rev. Code 3701.243(E): This information has been disclosed to you from confidential records protected from disclosure by state law. You shall make no further disclosure of this information without the specific, written, and informed release of the individual to whom it pertains, or as otherwise permitted by state law. A general authorization for the release of medical or other information is not sufficient for the purpose of the release of HIV test results or diagnoses. Performed By: #### CBC, RUBIGG, HBSAG, HIV12C, SYPHGX #### [address] [address] SYPHILIS IGG WITH Collected: 01/12/2018 Status: F Source: [facility] 10:17 AM [facility] REPOSITORY TYPE CODE TESTS RESULT OUT OF REFERENCE UNITS RANGE LAB SYPHQL Nonreactive Syphilis IgG, Nonreactive Qual Result Comment: In conjunction with this result, the immune status of the patient should be evaluated based on their clinical status, related risk factors, and other diagnostic test results. LAB SYPHLG AI Syphilis IgG <0.2 Result Comment: Antibody index is interpreted as follows: Non reactive SPECIMENS <=0.8 Weak reactive SPECIMENS 0.9 to 5.9 Reactive SPECIMENS >=6.0 Performed By: #### CBC, RUBIGG, HBSAG, HIV12C, SYPHGX #### [address] [address] 50G, 1HR GEST. Collected: 01/12/2018 Status: F Source: GRAY GSCRN 10:17 AM [facility] REPOSITORY TYPE CODE TESTS RESULT OUT OF REFERENCE UNITS RANGE LAB GLUP 74-134 mg/dL Glucose 115 Screen, Preg Result Comment: [place] [employer] of [employer]stetricians and Gynecologists (Viera/Coustan) guidelines state a gestational diabetes mellitus positive screen is made, in women not previously diagnosed with overt diabetes, when the 1 hr plasma glucose level is equal to or above 140 mg/dL. The [facility] recommends a 135 mg/dL cutoff. Performed By: #### GLTGST #### [facility] [address], [place] [id number] TYPE AND SCR,PRENATL Collected: 01/12/2018 Status: F Source: GRAY 10:17 AM [facility] REPOSITORY TYPE CODE TESTS RESULT OUT OF REFERENCE UNITS RANGE LAB %ABR O ABO/RH(D) POSITIVE LAB % Antibody NEG Screen Performed By: #### TSPN #### [facility] [address], [place] [address] TOXICOLOGY SCREEN,UR Collected: 01/12/2018 Status: F Source: GRAY 9:40 AM [facility] REPOSITORY TYPE CODE TESTS RESULT OUT OF REFERENCE UNITS RANGE LAB UPCP2 Negative Negative Phencyclidin e, Urine Result Comment: Cutoff threshold at 25 ng/mL. LAB UBENZ2 Negative Benzodiazepines, Ur Negative Result Comment: Cutoff threshold at 200 ng/mL. LAB UCOC2 Negative Cocaine, Negative Urine Result Comment: Cutoff threshold at 300 ng/mL. LAB UAMPH2 Negative Amphetamines, Urine Negative Result Comment: Cutoff threshold at 1000 ng/mL. LAB UTHC2 Negative Cannabinoids, Urine Negative Result Comment: Cutoff threshold at 50 ng/mL. LAB UOPI2 Negative Opiates, Negative Urine Result Comment: Cutoff threshold at 300 ng/mL. LAB UBARB2 Negative Barbiturates, Urine Negative Result Comment: Cutoff threshold at 200 ng/mL. LAB UETOH <11 mg/dL <11 Ethanol, Urine LAB UOXYC Negative Oxycodone, Negative Urine Result Comment: Cutoff threshold at 100 ng/mL. Comment: Immunoassay screen only. Cross reactivity with other substances can occur with immunoassay screening. Detection of any drug(s) in this urine toxicology panel is presumptive only. These tests are for med ical purposes only and should not be used for compliance monitoring, legal, or forensic use. In clinical settings, confirmatory testing is at the practitioner's discretion [1]. If clinically indicated, confirmation by high specificity, quantitative methodology may be requested on the same speci men through Client Services ([phone]) if contacted within 48 hours of initial testing. [1]Substance Abuse and Mental Health Services Administration (2012). Clinical Drug Testing in Primary Care Technical Assistance Publication Series 32. Department of Health and Human Services, [place], p.10. These tests were developed and their performance characteristics determined by [facility] ( [facility]). They have not been cleared or a pproved by the FDA. [facility] is regulated under CLIA as qualified to perform high complexity testing. These tests are used for clinical purposes. They should not be regarded as investigational or for research. Performed By: #### UTOX2 #### [place] [address] GC/CHLAMYDIA AMPLIF Collected: 01/12/2018 Status: F Source: GRAY 9:40 AM [facility] REPOSITORY TYPE CODE TESTS RESULT OUT OF REFERENCE UNITS RANGE LAB GCCTSR GC/Chlam Amp Cervix Source LAB GCAMPL GC Negative Amplification for Neisseria gonorrhoeae by amplification. LAB CLAMPL Chlamydia Negative Amplif for Chlamydia trachomatis by amplification. Performed By: #### GCCT #### [place] [id number] Observed: 01/12/2018 Status: F Source: GRAY URINE CULTURE 9:40 AM [facility] REPOSITORY Sp. Request/Comment: - Specimen received in preservative Culture Result - No growth (<1,000 CFU/ml) Performed By: #### URCUL #### [place] [address] PROGRESS Observed: 01/12/2018 Status: COMPLETED Source: GRAY 9:10 AM [facility] REPOSITORY HNO ID: [id number] Author: Geovanni Chavez Service: (none) Author Type: Intensivist Type: Progress Notes Filed: 01/12/2018 10:51 AM Note Text: INITIAL OB ASSESSMENT Carpenter Assistant offered: Patient declines. OB Provider: Geovanni Chavez CNM HPI: Keegan Cao is a 22 year old female here to establish Obstetrical Care. Patient's last menstrual period was 11/15/2017 (exact date). from OB Dating Form. Cycle length: 28-30 days LMP:11/15/17 ARANZA: 12/9/18 EGA 8w2d Sure LMP with regular cycles Complaints: None was planned. Had been trying to conceive June 2017 to October 2016 and did not get . Stopped actively trying in October and then became . Took a test on December 23 and it was positive. Obstetric History T0 L0 SAB0 TAB0 Ectopic0 Multiple0 Live Births0 Prior : never History of 4th degree laceration: No Patient's Risk Screening for delivery: History of abnormal pap: No Prior treatment for cervical dysplasia: none. History of STDs: None Tobacco use: No Caffeine use: Yes Drug use: No Alcohol use: No Multivitamin with Folic acid: Yes Occupation: Unemployeed Nondenominational or heritage: No Would refuse blood transfusion if medically necessary: No BMI 43.13 kg/(m2) Patient BMI over 30? No Marital Status: Partner: Name: Juan Cao Age: 21 Occupation: Microelectronics Assembler Gender: male History of STDs: None PAST MEDICAL HISTORY Diagnosis Date - NEGATIVE MEDICAL HISTORY PAST SURGICAL HISTORY Procedure Laterality Date - TONSILLECTOMY HX Current Outpatient Prescriptions on File Prior to Visit: Qkrwftub-Iy-Shi-Fe-FA ( VITAMIN) tab Take 1 tablet by mouth. levonorgestrel (MIRENA) 20 mcg/24 hr (5 years) IUD Inserted in office No current facility-administered medications on file prior to visit. Review of Systems: GENERAL: Negative for: Fever or Chills HEENT: Negative for: Impaired Vision, Ringing in Ears, Nosebleeds. Headaches every couple days, just go away on their own, does not have to take anything. NECK: Negative for: Swelling, Pain, Stiffness RESPIRATORY: Negative for: Cough, Shortness of breath, Wheezing GASTROINTESTINAL: Negative for: Heartburn, Constipation, Diarrhea, Blood in stool, Vomiting MUSCULOSKELETAL: Negative for: Muscle or joint pain, stiffness, Joint swelling NEUROLOGIC/PSYCHIATRIC: Negative for: Weakness, Paralysis, Numbness, Tingling, Tremor, Anxiety, Depression, Memory loss SKIN: Negative for: Rash, Itching GENITOURINARY: Negative for: vaginal itching, vaginal discharge, hematuria or dysuria PHYSICAL EXAM: BP 118/74 Ht 5' 6.22 (1.68m) Wt 269 lb (122.0kg) LMP 11/15/2017 BMI 43.13 kg/(m2). GENERAL: pleasant female in no apparent distress DERMATOLOGY: Normal, without lesions, non-icteric and non-hirsute NECK: Supple, full range of motion, no adenopathy and thyroid normal CHEST: Clear to auscultation Normal inspiratory effort Regular rate and rhythm No murmurs, clicks, rubs or gallops BREAST: soft, non-tender, symmetric, no dominant mass, normal nipple-areolar complex, no lymphadenopathy and no nipple discharge ABDOMEN: soft, non-tender and no masses. Obese NEURO: alert and oriented x3,exam grossly non-focal PELVIS: External genitalia normal without lesions. Perineal body intact. No vaginal or cervical lesions. Cervix closed. Uterus 8 week size. No adnexal masses or tenderness. Clinical Pelvimetry: Pelvimetry clinically assessed as adequate Limited OB ultrasound exam: single intrauterine , positive cardiac activity and crown-rump length 8w0d performed U/S. ASSESSMENT: 22 year old at 8w2d gestational age PLAN: 1) Patient oriented to practice. Discussed nutrition, folic acid supplementation, dietary guidelines, exercise, smoking, alcohol, caffeine, and drug use. Discussed routine OB labs including STD/HIV. Discussed aneuploidy screening options including serum screening and nuchal translucency. NT US ordered CF carrier screening discussed and declined. Will check with insurance first, declines today. 2) Morbid Obesity, BMI 43. 1hr GCT done today. Reviewed weight gain, healthy diet, portion control, and exercise. Follow up in 4 weeks or sooner prn. SBIRT Keegan Cao was given the 's screening tool. Keegan answered as follows: OB Opioid Screening - Last Recorded (since 04/17/2017) Did any of your parents have a problem with alcohol or other drug use? No Does your partner have a problem with alcohol or other drug use? No In the past, have you had difficulties in your life because of alcohol or other drugs, including prescription medications? No In the past month have you drunk any alcohol or used other drugs? (!) Yes (had 2 mixed drinks 12/13/2017 before she was aware she was ) Are you taking medication for pain during the either prescribed or not? No Based on the screen and further questions, she is considered at Low risk due to:Low level of use stopped prior to or immediately upon known . Positive reinforcement of current behavior. Plan to rescreen early third trimester. Geovanni Chavez APRN.CNM CNNURSE Observed: 01/07/2018 Status: COMPLETED Source: GRAY 1:30 PM [facility] REPOSITORY Nurse Visit (WOOB) KEEGAN CAO ([id number]) 1995 F Date Time Provider Department 01/07/18 1:30 PM NURSE PNOB [facility] W[facility] WOOB During your visit today, we recorded the following information about you: Last Period 11/15/17 Effie Keller RN 01/07/2018 1:51 PM Signed SEQUENTIAL SCREENINGS [facility] offers sequential screenings for women who are interested in screenings for chromosomal abnormalities and certain defects during a . The sequential screen combines ultrasound and blood tests to determine the risk of chromosomal abnormalities, including Down's Syndrome (Trisomy 21) and Trisomy 18, as well as open neural tube defects including spina bifida. Ultrasound examination is performed between 11 weeks and 13 weeks gestational age. Blood tests are drawn after the ultrasound and again later in the between 15 and 21 weeks gestational age. Please let your physician know if you are interested in this testing. It will require an appointment with our instrument and electrical technician. This is not an ultrasound performed by a physician in our office during a routine visit. SIGNS AND SYMPTOMS OF LABOR 1. Contractions every 10 minutes or more often 2. Clear, pink, or brownish fluid (water) leaking from vagina 3. Feeling that baby is pushing down, pressure 4. Low, dull backache 5. Cramps that feel like a period 6. Cramps with or without diarrhea If you notice any of the above symptoms, contact our office at [phone] and ask to speak with a nurse. After hours, you can call [facility] at [phone] OR call [facility] at [phone] and ask to have the doctor pressurization mechanic paged. If you consider this an emergency, dial 9-1-1 or go to your nearest emergency department. Cord-Blood Banking Up until recently, the umbilical cord--along with the blood that remained in it after a baby was born and the cord cut--was simply discarded by the hospital. Then, in the late , researchers discovered that cord blood possessed unusual properties that made it useful in the treatment of patients with some cancers and other illnesses. While the actual process of collecting cord blood is straightforward, many parents are not even aware that this option now exists, much less familiar with all the issues involved. The case for saving your baby's cord blood The blood running back and forth between your baby and the placenta is full of immature cells called stem cells. Unlike embryonic stem cells, which have the ability to develop into any type of body cell, cord-blood stem cells already are locked into a certain, vital function: making all the different components of the blood, such as platelets, white blood cells, and red blood cells-serving, in effect, like bone marrow. When transfused into a patient whose own blood cells have faulty genetic coding or have been destroyed by chemotherapy or other cancer treatments, the cord-blood cells can implant themselves in the bone marrow and generate legions of new, healthy cells. These days, cord-blood transplants most commonly are used in cancer patients when a donor can't be found for a bone-marrow transplant. The treatment is particularly effective in young patients-the [facility] Cord Blood [facility] reports a 70 percent success rate in children, but only 20 to 40 percent in adults. Researchers envision improving those odds and see many future applications as well, such as curing sickle cell disease and other blood-related genetic illnesses. So there is a possibility that your child, or someone else, may need these super-healthy and versatile cells one day. The drawbacks Aside from not knowing about this medical option, the main reason most people do not save their baby's stem cells is cost. In a private blood bank, the initial costs run from $275 to $1,500. Most also charge a yearly storage fee of $50 to $95. The advantage of using a private bank is that your sample is saved for only you to use. An alternative to private banking Public cord-blood shine are an alternative. These cost no money to use, but your sample is not specifically saved for you. Another person with a more immediate need may use it. If the time should come that you need stem cells, yours may still be available, or you may use donations from other people without charge. You also can direct your sample to go to a relative with an immediate need if the blood type matches. Anyone else needing to use stem cells from a public bank who has not been a donor must pay for it, sometimes tens of thousands of dollars. Will my family benefit from saving stem cells? Right now, situations in which stem cells would be helpful are quite rare. As mentioned earlier, stem-cell transplants are most commonly used for rare genetic conditions and for some types of cancer, including leukemia and lymphoma. And even with these present uses, many questions remain. In cancer treatment, for example, some researchers are concerned about the wisdom of transplanting back into the child the same cells that already showed a propensity to become malignant. Doctors also aren't sure if the number of cells taken at the time of would be enough to treat a full-grown 16-year-old. It is also not completely clear how active the cells would be after years of being stored. The treatment is so new and rare, we just don't have the data yet to resolve these important issues. What do the experts say? The [employer] encourages philanthropic blood banking in public shine, but only for families with a current or potential need. Blood-bank proponents encourage any kind of banking, pointing out that research is getting closer and closer to many diverse, live-saving applications. How do I decide? Each family must weigh the pros and cons for themselves. Some families say that any cost is worth their peace of mind. Others say that in the face of uncertainty about the effectiveness of the treatment, they will use their resources elsewhere. Some choose the middle ground of donating publicly, knowing that their sample might benefit another family, if not themselves. For more information, ask your doctor or nurse, and be sure to check out our article on the technical aspects of cord-blood banking. Technical Aspects of Cord-Blood Banking If you are interested in storing your baby's umbilical-cord blood because of its possible use in emerging medical treatments, you must make arrangements with a blood bank before your child is born. The collection procedure is quite simple: After delivery of the baby, the umbilical cord is clamped and cut in the usual way. The blood that remains in the umbilical-cord vessels is then collected in sterile containers. The blood may be removed from the cord with a large needle or allowed to flow freely, depending on the company's collection system. The containers may look like large test tubes or like the plastic bags used in a blood bank. It does not cause the mother or the baby any pain to collect the blood, and no blood is taken that the baby needs at the moment. The nurse, roll forming machine operator, or physician will then label the samples, check them over with you, and package them for a special pickup arranged with a commercial carrier. When the blood arrives at the blood-bank facility, it is processed and the parents are notified. It is then kept in an advanced storage system for years. How do I know that my sample is safe? Power outages and bankruptcies potentially could threaten any organization, but so far none have been reported. It is to be hoped that the scientists in these shine would arrange for safe transfer to another facility if the need arose. YOU MUST MAKE ARRANGEMENTS AHEAD OF TIME! Public cord-blood shine--DONATION: [employer] [phone] [facility]'s Placental Blood Program, [facility]il[facility] Cord Blood [facility], Private cord-blood shine--SAVING FOR YOUR OWN USE: [employer], (I think this is the least expensive) [employer] [phone] [employer], [phone]) [employer] [place] [facility], [phone] 700[employer] Cells, [phone] [place] [facility], Cord Blood Registry, [phone]) [employer], An Internet search may provide you with additional listings. Referring Provider: SELF [200] Allergies As of Date: 01/07/2018 (No Known Allergies) Date Reviewed: 01/07/2018 Reviewed by: Effie Keller RN - Fully Assessed Reason for Visit: Care [86] Cmt: Pre-New OB Primary Visit Diagnosis:Supervision of normal first , antepartum [Z34.00] Other Visit Diagnoses:Obesity in [O99.210] Patient request for diagnostic testing [Z01.89] Order(s):[facility] PT ED COMPLAINT INVESTIGATOR [] Order #: [id number]: 1 FUTURE [facility] PT ED ANESTHESIA [21190601] Order #: [id number]: 1 FUTURE [facility] PT ED COMPLAINT INVESTIGATOR [] Order #: [id number]: 1 FUTURE [facility] WHAT TO EXPECT DURING YOUR HOSPITAL STAY [] Order #: [id number]: 1 FUTURE [facility] PT ED COMPLAINT INVESTIGATOR [] Order #: [id number]: 1 FUTURE [facility] PT ED COMPLAINT INVESTIGATOR [] Order #: [id number]: 1 FUTURE [facility] PT ED COMPLAINT INVESTIGATOR [] Order #: [id number]: 1 FUTURE [facility] PT ED COMPLAINT INVESTIGATOR [] Order #: [id number]. #:[id number]: 1 [facility] PT ED ANESTHESIA [[id number]] Order #: [id number]. #:[id number]: 1 [facility] PT ED COMPLAINT INVESTIGATOR [] Order #: [id number]. #:[id number]: 1 [facility] WHAT TO EXPECT DURING YOUR HOSPITAL STAY [] Order #: [id number]. #:[id number]: 1 [facility] PT ED COMPLAINT INVESTIGATOR [] Order #: [id number]. #:[id number]: 1 [facility] PT ED COMPLAINT INVESTIGATOR [] Order #: [id number]. #:[id number]: 1 [facility] PT ED COMPLAINT INVESTIGATOR [] Order #: [id number]. #:[id number]: 1 Prescriptions as of 01/07/2018 Sig: VITAMIN,CALCIUM,MINE* Take 1 tablet by mouth. LEVONORGESTREL 20 MCG/24 HR (* Inserted in office Medication notes this encounter LEVONORGESTREL 20 MCG/24 HR (5 YEARS) INTRAUTERINE DEVICE >> Effie Keller RN 01/07/2018 1:36 PM >> EFFIE KELLER RN [facility] Jan 07, 2018 1:36 PM Removed 05/2017 Problem List As Of Date 01/07/2018 Noted Resolved Obesity in [O99.210] INVALID FOR* More... Patient request for diagnostic testing [Z01.89] INVALID FOR* More... Other instructions from your clinician: SEQUENTIAL SCREENINGS [facility] offers sequential screenings for women who are interested in screenings for chromosomal abnormalities and certain defects during a . The sequential screen combines ultrasound and blood tests to determine the risk of chromosomal abnormalities, including Down's Syndrome (Trisomy 21) and Trisomy 18, as well as open neural tube defects including spina bifida. Ultrasound examination is performed between 11 weeks and 13 weeks gestational age. Blood tests are drawn after the ultrasound and again later in the between 15 and 21 weeks gestational age. Please let your physician know if you are interested in this testing. It will require an appointment with our instrument and electrical technician. This is not an ultrasound performed by a physician in our office during a routine visit. SIGNS AND SYMPTOMS OF LABOR 1. Contractions every 10 minutes or more often 2. Clear, pink, or brownish fluid (water) leaking from vagina 3. Feeling that baby is pushing down, pressure 4. Low, dull backache 5. Cramps that feel like a period 6. Cramps with or without diarrhea If you notice any of the above symptoms, contact our office at [phone] and ask to speak with a nurse. After hours, you can call doctors registry at [phone] OR call [facility] at [phone] and ask to have the doctor pressurization mechanic paged. If you consider this an emergency, dial 9-1-1 or go to your nearest emergency department. Cord-Blood Banking Up until recently, the umbilical cord--along with the blood that remained in it after a baby was born and the cord cut--was simply discarded by the hospital. Then, in the late 1980s, researchers discovered that cord blood possessed unusual properties that made it useful in the treatment of patients with some cancers and other illnesses. While the actual process of collecting cord blood is straightforward, many parents are not even aware that this option now exists, much less familiar with all the issues involved. The case for saving your baby's cord blood The blood running back and forth between your baby and the placenta is full of immature cells called stem cells. Unlike embryonic stem cells, which have the ability to develop into any type of body cell, cord-blood stem cells already are locked into a certain, vital function: making all the different components of the blood, such as platelets, white blood cells, and red blood cells-serving, in effect, like bone marrow. When transfused into a patient whose own blood cells have faulty genetic coding or have been destroyed by chemotherapy or other cancer treatments, the cord-blood cells can implant themselves in the bone marrow and generate legions of new, healthy cells. These days, cord-blood transplants most commonly are used in cancer patients when a donor can't be found for a bone-marrow transplant. The treatment is particularly effective in young patients- the [facility] Cord Blood [facility] reports a 70 percent success rate in children, but only 20 to 40 percent in adults. Researchers envision improving those odds and see many future applications as well, such as curing sickle cell disease and other blood-related genetic illnesses. So there is a possibility that your child, or someone else, may need these super-healthy and versatile cells one day. The drawbacks Aside from not knowing about this medical option, the main reason most people do not save their baby's stem cells is cost. In a private blood bank, the initial costs run from $275 to $1,500. Most also charge a yearly storage fee of $50 to $95. The advantage of using a private bank is that your sample is saved for only you to use. An alternative to private banking Public cord-blood shine are an alternative. These cost no money to use, but your sample is not specifically saved for you. Another person with a more immediate need may use it. If the time should come that you need stem cells, yours may still be available, or you may use donations from other people without charge. You also can direct your sample to go to a relative with an immediate need if the blood type matches. Anyone else needing to use stem cells from a public bank who has not been a donor must pay for it, sometimes tens of thousands of dollars. Will my family benefit from saving stem cells? Right now, situations in which stem cells would be helpful are quite rare. As mentioned earlier, stem-cell transplants are most commonly used for rare genetic conditions and for some types of cancer, including leukemia and lymphoma. And even with these present uses, many questions remain. In cancer treatment, for example, some researchers are concerned about the wisdom of transplanting back into the child the same cells that already showed a propensity to become malignant. Doctors also aren't sure if the number of cells taken at the time of would be enough to treat a full-grown 16-year-old. It is also not completely clear how active the cells would be after years of being stored. The treatment is so new and rare, we just don't have the data yet to resolve these important issues. What do the experts say? The [employer] encourages philanthropic blood banking in public shine, but only for families with a current or potential need. Blood-bank proponents encourage any kind of banking, pointing out that research is getting closer and closer to many diverse, live-saving applications. How do I decide? Each family must weigh the pros and cons for themselves. Some families say that any cost is worth their peace of mind. Others say that in the face of uncertainty about the effectiveness of the treatment, they will use their resources elsewhere. Some choose the middle ground of donating publicly, knowing that their sample might benefit another family, if not themselves. For more information, ask your doctor or nurse, and be sure to check out our article on the technical aspects of cord-blood banking. Technical Aspects of Cord-Blood Banking If you are interested in storing your baby's umbilical- cord blood because of its possible use in emerging medical treatments, you must make arrangements with a blood bank before your child is born. The collection procedure is quite simple: After delivery of the baby, the umbilical cord is clamped and cut in the usual way. The blood that remains in the umbilical-cord vessels is then collected in sterile containers. The blood may be removed from the cord with a large needle or allowed to flow freely, depending on the company's collection system. The containers may look like large test tubes or like the plastic bags used in a blood bank. It does not cause the mother or the baby any pain to collect the blood, and no blood is taken that the baby needs at the moment. The nurse, roll forming machine operator, or physician will then label the samples, check them over with you, and package them for a special pickup arranged with a commercial carrier. When the blood arrives at the blood- bank facility, it is processed and the parents are notified. It is then kept in an advanced storage system for years. How do I know that my sample is safe? Power outages and bankruptcies potentially could threaten any organization, but so far none have been reported. It is to be hoped that the scientists in these shine would arrange for safe transfer to another facility if the need arose. YOU MUST MAKE ARRANGEMENTS AHEAD OF TIME! Public cord-blood shine--DONATION: [employer] [phone] [facility] Placental Blood Program, [facility]ilical Cord Blood [facility], Private cord-blood shine--SAVING FOR YOUR OWN USE: [email or web address], (I think this is the least expensive) [employer] [phone] [employer], (300) [employer] [place] [facility] Blood [facility], [phone] 700-[employer] Cells, [phone] [place] [facility], Cord Blood Registry, [phone]) [employer], An Internet search may provide you with additional listings. Disposition: Return in 5 days (on 01/12/2018) for New OB with Geovanni Chavez. Follow-up and Disposition History Recorded Encounter Status:Closed by EFFIE KELLER RN on 01/07/18 ALLERGIES ALLERGIES DATE TYPE / CODE NAME / CODE REACTION SEVERITY SOURCE 08/12/2018 Drug No Known Unknown [facility] Allergy/416 Allergies/F19895 Hospital 019862(SNOM 0388(RXNORM) Repository ED CT) Drug NO KNOWN [facility] Class/68715 ALLERGIES [place] 1003(SNOMED Repository CT) ENCOUNTERS ENCOUNTERS ADMIT/DISCHARGE ACCOUNT NUMBER ADMITTING ENCOUNTER LOCATION SOURCE CLASS 08/18/2018/08/19/20 [id number] Ambulatory [address] Repository 08/12/2018/08/14/20 [id number] Marie, [place] Encounter [facility] ding:WPRoom: Repository [id number]: 1 08/04/2018/08/06/20 [id number] Ambulatory [facility] [place] Repository 07/30/2018/08/02/20 [id number] [facility] [place] Repository 07/22/2018/07/23/20 [id number] Ambulatory [facility] [place] Repository 07/08/2018/07/09/20 [id number] [facility] [place] Repository 06/24/2018/06/25/20 [id number] [facility] [place] Repository 06/09/2018/06/09/20 [id number] Amb[facility] [place] Repository 06/09/2018/06/10/20 [id number] Amb[facility] [place] Repository 05/26/2018/05/26/20 [id number] Amb[facility] [place] Repository 05/26/2018/05/27/20 [id number] [facility] [place] Repository 05/05/2018/05/06/20 [id number] Amb[facility] [place] Repository 04/06/2018/04/14/20 [id number] Amb[facility] [place] Repository 04/06/2018/08/27/20 [id number] [facility] [place] Repository 03/10/2018/03/10/20 [id number] Amb[facility] [place] Repository 03/10/2018/03/11/20 [id number] Ambulatory [facility] [place] Repository 03/03/2018/03/04/20 [id number] Emergency BBuilding:HUGH Newman [address] [place] [address] Repository 02/09/2018/02/10/20 [id number] Ambulatory [facility] [place] Repository 02/09/2018/02/11/20 [id number] Amb[facility] [place] Repository 02/09/2018/02/12/20 [id number] Ambulatory [facility] [place] Repository 01/12/2018/01/13/20 [id number] Amb[facility] [place] Repository 01/12/2018/01/15/20 [id number] Amb[facility] [place] Repository 01/07/2018/01/08/20 [id number] Amb[facility] [place] Repository PAYERS PAYERS ENCOUNTER GUARANTOR PAYER SUBSCRIBER SOURCE 08/12/2018 KEEGAN E [id number] Primary KEEGAN E CYRUSDOB: [place] Insurance:PARAMOUNT [id number] [facility] [address]Osf: (077) Number: Repository [phone] () [id number] Date:[id number] [address] [place] [id number]: 08/12/2018 Secondary NOT GIVENUNK [place] Insurance:SELF PAY [facility] Number: Effective Repository Date:2018-08-12 03/03/2018 KEEGAN E CYRUSDOB: Primary KEEGAN E CYRUSDOB: [facility] [id number] Insurance:MEDICAL [id number] [place] [address] [address] [facility] Number: [place], [place] [address] [id number]: [phone] [email or web address] Date:2018-03-03 [phone] l: [phone] () Name:ANDREW BEY [phone] () ()Tel: [phone], [place] [phone] (SF) [id number]:
== END 2018-08-14 21:05 | disposition home or self-care (01) | DRG 560 ==
PROVIDERS: Admitting Provider Obstetrics & Gynecology; Referring Provider Obstetrics & Gynecology; Visit Provider Obstetrics & Gynecology
DX: O71.4 Obstetric high vaginal laceration alone (principal); Z37.0 Single live birth; O98.82 Other maternal infectious and parasitic diseases complicating childbirth; B95.1 Streptococcus, group B, as the cause of diseases classified elsewhere; Z22.330 Carrier of Group B streptococcus; Z3A.38 38 weeks gestation of pregnancy
CPT/HCPCS: 59025; 59050; 85027; 86850; 86900; 99218; J7120; G0378; J3490